=== PATIENT | female | born 1970 | race Caucasian/White ===

== ENCOUNTER 2018-08-22 17:31 | Outpatient (CLI) | payer BC ==
--- NOTE | 2018-08-24 00:45 | XRAY Report ---
Reason: UNSPECIFIED INJURY OF LEFT FOOT, INITIAL ENCOUNTER Procedure Date: 08/22/2018 Accession Number: [id number] / [id number] Procedure: XR - Foot 3 View LT CPT Code: FULL RESULT: EXAM: LEFT FOOT RADIOGRAPHY EXAM DATE: 08/22/2018 05:47 PM. CLINICAL HISTORY: Left foot pain. Stubbed toes 1 week ago. Bruising across second to fifth digits. COMPARISON: None. TECHNIQUE: 3 views. FINDINGS: Bones: Nondisplaced oblique shaft fracture of the third proximal phalanx. No other traumatic or destructive bone abnormalities. Bifid medial sesamoid noted. Joints: Normal. No subluxations. Soft Tissues: Unremarkable. IMPRESSION: Nondisplaced oblique shaft fracture of the third proximal phalanx. RADIA
== END 2018-08-22 17:32 | disposition home or self-care (01) ==
LOC: DI 17:31
PROVIDERS: ATTEND Nurse Practitioner Family
DX: S92.515A Nondisplaced fracture of proximal phalanx of left lesser toe(s), initial encounter for closed fracture (principal)

== ENCOUNTER 2018-09-15 13:19 | Outpatient (CLI) | payer BC ==
[2018-09-15 13:33] LABS: BILIRUBIN,URINE NEGATIVE (NEGATIVE); CLARITY,URINE CLEAR (CLEAR); GLUCOSE, URINE (UA) NEGATIVE (NEGATIVE); KETONES,URINE (UA) NEGATIVE (NEGATIVE); LEUKOCYTE ESTERASE, URINE MODERATE (NEGATIVE); NITRITE,URINE NEGATIVE (NEGATIVE); OCCULT BLOOD,URINE LARGE (NEGATIVE); PH,URINE 7.5 PH (5.0-7.5); PROTEIN,URINE NEGATIVE (NEGATIVE); UROBILINOGEN,URINE 0.2 (NORMAL) E.U./dL (NORMAL)
[2018-09-15 13:50] LABS: WBC CLUMPS,URINE PRESENT
[2018-09-15 13:51] LABS: BACTERIA,URINE Many /HPF (None Seen); SQUAMOUS EPITHELIAL CELL,UR RARE Squamous (<= Few)
== END 2018-09-15 13:20 | disposition home or self-care (01) ==
LOC: LAB 13:19
PROVIDERS: ATTEND Nurse Practitioner Family
DX: R30.9 Painful micturition, unspecified (principal)
CPT/HCPCS: 81001; 81003

== ENCOUNTER 2020-07-06 13:00 | Outpatient (CLI) | payer OTHER | END 2020-07-06 13:01 | disposition home or self-care (01) | LOC: COV 13:00 | PROVIDERS: ATTEND Nurse Practitioner Family | DX: Z20.828 Contact with and (suspected) exposure to other viral communicable diseases (principal) ==

== ENCOUNTER 2021-02-14 08:00 | Outpatient (CLI) | payer OTHER ==
[2021-02-14 20:42] LABS: BILIRUBIN,URINE NEGATIVE (NEGATIVE); GLUCOSE, URINE (UA) NEGATIVE (NEGATIVE); KETONES,URINE (UA) 15 mg/dL (NEGATIVE); LEUKOCYTE ESTERASE, URINE SMALL (NEGATIVE); NITRITE,URINE NEGATIVE (NEGATIVE); OCCULT BLOOD,URINE LARGE (NEGATIVE); PH,URINE 6.5 PH (5.0-7.5); PROTEIN,URINE TRACE mg/dL (NEGATIVE); UROBILINOGEN,URINE 0.2 (NORMAL) E.U./dL (NORMAL)
[2021-02-14 21:06] LABS: BACTERIA,URINE Few /HPF (None Seen); CLARITY,URINE SL. CLOUDY (CLEAR); CRYSTALS,URINE 3-5 Calcium Oxalate /LPF; SQUAMOUS EPITHELIAL CELL,UR FEW Squamous (<= Few)
== END 2021-02-14 23:59 | disposition home or self-care (01) ==
LOC: LAB.S 08:00
PROVIDERS: ATTEND Emergency Medicine
DX: R30.0 Dysuria (principal)
CPT/HCPCS: 81001; 87086

== ENCOUNTER 2021-02-17 13:19 | Outpatient (CLI) | payer OTHER ==
[2021-02-17 14:23] LABS: BILIRUBIN,URINE NEGATIVE (NEGATIVE); GLUCOSE, URINE (UA) NEGATIVE (NEGATIVE); KETONES,URINE (UA) NEGATIVE (NEGATIVE); LEUKOCYTE ESTERASE, URINE MODERATE (NEGATIVE); NITRITE,URINE POSITIVE (NEGATIVE); OCCULT BLOOD,URINE MODERATE (NEGATIVE); PROTEIN,URINE NEGATIVE (NEGATIVE); UROBILINOGEN,URINE 0.2 (NORMAL) E.U./dL (NORMAL)
[2021-02-17 14:27] LABS: CLARITY,URINE HAZY (CLEAR)
[2021-02-17 14:37] LABS: WBC,URINE >25 /HPF (0-5)
[2021-02-17 14:38] LABS: BACTERIA,URINE Few /HPF (None Seen); SQUAMOUS EPITHELIAL CELL,UR NONE SEEN (<= Few)
== END 2021-02-17 13:20 | disposition home or self-care (01) ==
LOC: LAB 13:19
PROVIDERS: ATTEND Emergency Medicine
DX: R30.0 Dysuria (principal)
CPT/HCPCS: 81001; 87077; 87086

== ENCOUNTER 2022-04-26 08:00 | Outpatient (CLI) | payer OTHER | END 2022-04-26 23:59 | disposition home or self-care (01) | LOC: LAB.N 08:00 | PROVIDERS: ATTEND Registered Nurse | DX: N12 Tubulo-interstitial nephritis, not specified as acute or chronic (principal); R30.0 Dysuria | CPT/HCPCS: 87077; 87086 ==

== ENCOUNTER 2022-11-23 08:00 | Outpatient (CLI) | payer OTHER ==
[2022-11-27 07:10] LABS: HSV-1 DNA Negative (Negative); HSV-2 DNA Positive (Negative)
== END 2022-11-23 23:59 | disposition home or self-care (01) ==
LOC: LAB 08:00
PROVIDERS: ATTEND Nurse Practitioner
DX: N90.89 Other specified noninflammatory disorders of vulva and perineum (principal)
CPT/HCPCS: 87529

== ENCOUNTER 2022-11-23 11:15 | Outpatient (CLI) | payer OTHER ==
[2022-11-24 15:08] LABS: HSV 1 IGG TYPE SPEC <0.91 index (0.00-0.90); HSV 2 IGG TYPE SPEC <0.91 index (0.00-0.90)
== END 2022-11-23 11:16 | disposition home or self-care (01) ==
LOC: LAB 11:15
PROVIDERS: ATTEND Nurse Practitioner
DX: N90.89 Other specified noninflammatory disorders of vulva and perineum (principal)
CPT/HCPCS: 36415; 86695; 86696

== ENCOUNTER 2023-04-02 08:00 | Outpatient (CLI) | payer OTHER ==
[2023-04-02 16:58] LABS: BILIRUBIN,URINE NEGATIVE (NEGATIVE); GLUCOSE, URINE (UA) NEGATIVE (NEGATIVE); KETONES,URINE (UA) NEGATIVE (NEGATIVE); LEUKOCYTE ESTERASE, URINE NEGATIVE (NEGATIVE); NITRITE,URINE NEGATIVE (NEGATIVE); OCCULT BLOOD,URINE SMALL (NEGATIVE); PH,URINE 5.5 PH (5.0-7.5); PROTEIN,URINE NEGATIVE (NEGATIVE); UROBILINOGEN,URINE 0.2 (NORMAL) E.U./dL (NORMAL)
[2023-04-02 17:14] LABS: AMORPHOUS SEDIMENT,UR Marked /LPF; BACTERIA,URINE Few /HPF (None Seen); CLARITY,URINE CLOUDY (CLEAR); SQUAMOUS EPITHELIAL CELL,UR FEW Squamous (<= Few); WBC,URINE 0-3 /HPF (0-5)
== END 2023-04-02 23:59 | disposition home or self-care (01) ==
LOC: LAB 08:00
PROVIDERS: ATTEND Nurse Practitioner
DX: R30.0 Dysuria (principal)
CPT/HCPCS: 81001; 87086

== ENCOUNTER 2024-08-26 11:18 | Observation (INO) ==
[~2024-08-26 11:18] MED LIST: BUPIVACAINE 0.25% PF 30 ML VIAL ONE; LIDOCAINE 1%-EPI 1:100000 20 ML MDV ONE; ceFAZolin 2 GM VIAL ONE; iohexoL-240 10 ML VIAL IVP ONE
[2024-08-26] MEDS ORDERED: fentaNYL 100 MCG/2 ML VIAL ONE ×2 (12:30→13:35)
[2024-08-26] MEDS ORDERED: ROCURONIUM 50 MG/5 ML VIAL ONE ×2 (12:30→14:40)
[2024-08-26] MEDS ORDERED: MIDAZOLAM 2 MG/2 ML VIAL ONE (12:30)
[2024-08-26] MEDS ORDERED: PROPOFOL 200 MG/20 ML VIAL IVP ONE (12:30)
[2024-08-26] MEDS ORDERED: LIDOCAINE-PF 2% 10 ML AMP SUBQ ONE (12:35)
[2024-08-26 12:40] LABS: ALBUMIN 4.4 g/dL (3.2-5.5); ALBUMIN/GLOBULIN RATIO 1.7 (1.0-2.2); BILIRUBIN,TOTAL 0.6 mg/dL (0.2-1.0); CALCIUM 9.6 mg/dL (8.5-10.3); CREATININE 0.9 mg/dL (0.6-1.3); POTASSIUM 4.3 mmol/L (3.5-4.5)
--- NOTE | 2024-08-26 13:02 | ANESTHESIA PROCEDURE NOTE ---
Pre-Anesthesia VS, & Labs Diagnosis Surgical Diagnosis:: cholelithiasis Procedure Procedure: Lap Dayna Vitals Vital Signs: Temp Pulse Resp BP Pulse Ox 36.1 C L 60 15 106/59 L 100 08/26/24 11:53 08/26/24 11:53 08/26/24 11:53 08/26/24 11:53 08/26/24 11:53 NPO NPO: >8 hours Is Patient ?: Not Applicable Lab Results Current Lab Results: Laboratory Tests 08/26/24 12:15: Sodium 138, Potassium 4.3, Chloride 105, Carbon Dioxide 27, Anion Gap 6.0, BUN 11, Creatinine 0.9, Estimated GFR (MDRD) 65 L, Glucose 93, Calcium 9.6, Total Bilirubin 0.6, AST 17, ALT 19, Alkaline Phosphatase 55, Total Protein 7.0, Albumin 4.4, Globulin 2.6, Albumin/Globulin Ratio 1.7 Lab results reviewed: Yes 08/26/24 12:15 Meds/Allgy Home Medications Ambulatory Orders Medication Instructions Recorded Confirmed estradiol 0.01% (0.1 mg/gram) 1 g vaginal .three times weekly 07/23/24 08/26/24 vaginal cream (Estrace) #42.5 grams ondansetron HCl 4 mg tablet 4 mg PO Q8H PRN nausea and 08/22/24 08/25/24 vomiting 7 days #21 tabs Allergies Allergies Allergy/AdvReac Type Severity Reaction Status Date / Time Latex, Natural Rubber Allergy Intermediate Rash Verified 08/26/24 11:51 seasonal Allergy Unknown Unknown Uncoded 08/25/24 13:02 PFSH Medical History Medical History Postmenopausal atrophic vaginitis Surgical History Surgical History Hx of tonsillectomy 1973 H/O knee surgery broken knee cap 1984 Family History Family History Mother Diabetes Father CAD (coronary artery disease) Aunt High blood pressure Depressed Uncle High blood pressure Alcoholism Social History Social History (Updated 08/26/24 @ 12:19 by Freya Lepe DO) Smoking Status: Never smoker Living arrangement: At home Marital Status: Living Condition: With spouse/s.o. Relationship: Level: Independent Substance Use: cannabis (any form) Anesthesia Exam (Expanded) Exam General: Alert, Oriented x3 and Cooperative Dental: WNL Mouth Openin Fingerbreadth Mallampati classification: II Thyromental Distance: 4-6 cm Plan Plan Anesthesia Type: General Consent for Procedure(s) Verified and Reviewed: Yes Code Status: Attempt Resuscitation ASA Classification ASA classification: 1-Healthy patient Is this case an emergency?: No
[2024-08-26] MEDS ORDERED: fentaNYL 100 MCG/2 ML VIAL IVP PRN (13:05)
[2024-08-26] MEDS ORDERED: NALOXONE 0.4 MG/ML VIAL IVP PRN (13:05)
[2024-08-26] MEDS ORDERED: ATROPINE ABBOJECT 1 MG/10 ML SYRINGE IVP PRN (13:05)
[2024-08-26] MEDS ORDERED: ONDANSETRON 4 MG/2 ML VIAL IVP PRN ×2 (13:05→17:20)
[2024-08-26] MEDS ORDERED: MORPHINE 2 MG/ML CARPUJECT IVP PRN (13:05)
[2024-08-26] MEDS ORDERED: HYDROmorphone 0.5 MG/0.5 ML SYRINGE IVP PRN ×2 (13:05→17:20)
[2024-08-26] MEDS: SCOPOLAMINE PATCH TOP SCH ×2 (13:06→19:07)
[2024-08-26] MEDS ORDERED: DEXAMETHASONE 4 MG/ML VIAL ONE (13:16)
[2024-08-26] MEDS ORDERED: PHENYLEPHRINE HCL 0.5 MG/5 ML AMPULE ONE (13:16)
[2024-08-26] MEDS ORDERED: ACETAMINOPHEN 1,000 MG/100 ML 1,000 MG/100 ML BAG IV ONE (13:50)
[2024-08-26] MEDS ORDERED: ePHEDrine 50 MG/ML VIAL IVP ONE (14:01)
[2024-08-26] MEDS ORDERED: SODIUM CHLORIDE 0.9% 10 ML VIAL IVP ONE (14:01)
[2024-08-26] MEDS ORDERED: GLUCAGON 1 MG/ML VIAL ONE (14:10)
[2024-08-26] MEDS ORDERED: iohexoL-240 10 ML VIAL IVP ONE ×2 (14:12→14:26)
[2024-08-26] MEDS ORDERED: SUGAMMADEX 200 MG/2 ML VIAL IVP ONE (14:13)
[2024-08-26] MEDS ORDERED: HYDROmorphone 1 MG/ML CARPUJECT ONE (16:09)
--- NOTE | 2024-08-26 16:43 | OPERATIVE REPORT ---
Operative Report General Procedure Data: Operation Date: 08/26/24 12:45 Proposed Procedures p Laparoscopic Cholecystectomy(Not Applicable) - Freya Lepe DO Actual Procedures p Laparoscopic Cholecystectomy INTEROPERATIVE CHOLANGIOGRAM; Attempted Laparoscopic common bile DUCT EXPLORATION(Not Applicable) - Freya Lepe DO Anesthesia Type General Case Staff Anesthesia Provider: Mushtaq Rainey Anesthesia Provider: Estefania Siegel Case Times Procedure Start: 08/26/24 13:29 Time out: 08/26/24 13:27 Pre-Op Diagnosis: intractable biliary colic Post Op Diagnosis: 1) intractable biliary colic 2) Choledocholithiasis Procedure Note Intake, IV Amount (ml): 1,700 Estimated Blood Loss (ml): 15 Pathology: gallbladder and contents Indications: 53F with 5 days of intractable RUQ pain since 08/21/24, mitigated by taking only clear liquids for those 5 days. Four days (08/22/24) ago had outpatient labs (normal WBC and LFTs) and RUQUS showing cholelithiasis and a stone lodged in the cystic duct but no evidence of cholecystitis (common bile duct diameter normal). Seen in general surgery clinic on 08/25/24 with persistent pain but no fever or WBC; she was set up for outpatient laparoscopic cholecystectomy the following day. Repeat LFTs on the day of surgery remained normal. Findings: Thin-walled gallbladder with mild inflammation. Stones within the gallbladder. Cystic ductotomy was made and attempted to milk from the cystic duct the stone reported on US. Because no cystic duct stone was able to be seen or milked from the cystic duct, decision was made to complete an intraoperative cholangiogram. IOC positive - single stone/meniscus seen at ampulla. Glucagon administered followed by "power flush" of CBD with normal saline, repeat cholangiogram showed stone had not passed. Attempted Laparoscopic CBDE, however due to anatomy of the cystic duct, spiraling around and posterior to the common duct, the spyglass choledochoscope was not able to be advanced over the guidewire into the distal CBD. Ultimately unsuccessful Lap CBDE, and procedure was concluded with plan for postoperative ERCP. Complications: none Other Other Information/Narrative: The patient was brought to the operating room under universal protocol. They were placed supine on the operating room table. General anesthesia was induced by the PUBLIC SPEAKING PROFESSOR. No [place] was placed. A final timeout was performed with all members of the team in agreement. The abdomen was prepped and draped in standard sterile fashion. The abdomen was entered via De Santiago technique at the infraumbilical position. Local anesthetic was injected and the skin was incised sharply. The subcutaneous tissues were dissected bluntly down to the level of the fascia, and a Demian clamp was used to elevate the umbilicus. The fascia was incised vertically sharply. The peritoneal cavity was entered bluntly with a Alisha forcep a blunt trocar was placed. The abdomen was insufflated to 15 mmHg with CO2 gas which the patient tolerated well. The laparoscope was introduced, no entry trauma was identified, and under direct visualization 3 additional 5 mm trocars were placed in the following positions: Subxiphoid, the subcostal margin along the right midclavicular line, and far lateral right upper quadrant at the subcostal margin. Patient was positioned with the head up in the right side elevated and graspers were introduced into the abdomen. The gallbladder was seen to be mildly inflamed with normal anatomy. The fundus was grasped and elevated cephalad over the liver edge. The infundibulum was grasped and retracted laterally. Hook electrocautery was used to incise the peritoneum over the medial and lateral edge of the gallbladder. Blunt dissection was used to clear the fat and connective tissue from the lower half of the gallbladder, exposing the cystic triangle. 2 structures were seen entering the lower third of the gallbladder with the liver edge seen between these 2 structures representing the critical view of safety. The cystic artery was triply clipped and divided sharply between the clips. The cystic duct was clipped proximally and partially divided allowing a ductotomy through which the cystic duct could be milked. The distal cystic was milked in an attempt to extract the stone which was seen on ultrasound to be lodged within the cystic duct. No such stone was identified or extracted. Thus, decision was made to perform an intraoperative cholangiogram. A ureteral catheter was introduced to the cystic duct and clamped using an Olvera clamp. A saline flush was seen to pass distally within the duct without spillage. The C- arm was brought in, and under fluoroscopic guidance, contrast was injected. A cholangiogram was obtained, showing the cystic duct emptying into the common duct, filling the proximal intrahepatic radicals, and flowing distally within the common bile duct. At the ampulla, there was a meniscus sign and minimal contrast passed into the duodenum, consistent with a cholangiogram positive for choledocholithiasis. Glugagon was administered intravenously, 5 minutes was allowed to elapse, and a "power flush" with 50cc of normal saline was injected via the cholagiogram catheter. Another cholangiogram was taken with contrast following the power flush, and the stone at the ampulla remained. Decision was made to proceed with laparoscopic common bile duct exploration using the Spflck.melass choledochoscope system. The olvera clamp and ureteral catheter were removed. An introducer sheath was passed through a separate stab incision in the right upper quadrant, and through the sheath a guidewire was passed into the cystic ductotomy and verified via fluoroscopy to have passed via the common duct into the duodenum. Over the guidewire, the cystic duct was balloon dilated to 6mm. The choledochoscope was then passed over the wire. After great effort, it was unable to be advanced passed the junction of the cystic duct and common bile duct. The sheath was then positioned through a different right upper quadrant stab incision in an effort to improve the angle to allow successful passage of the choledochoscope, and the same steps were repeated, ultimately with the same result of the choledochoscope getting stuck at the junction. At this point the choledochoscope was removed, the balloon dilator was readvanced and deployed under fluoro. It was at this point that it became clear that the anatomy of the cystic duct was such that it spiraled around the common duct before entering the common duct. The spiraled portion was dilated via two balloon positions, and a final attempt at passing the choledochoscope was made, however unsuccessful. The attempted laparoscopic common bile duct exploration was aborted at this point, and relevant equipment was withdrawn, noting that the patient would require postoperative ERCP for the choledocholith that was unable to be cleared via glucagon/flushing. The cystic duct was then fully transected at the level of the ductotomy. The cystic duct stump was ligated with one clip and an 0 PDS endoloop. The gallbladder was taken off of the liver bed using hook electrocautery. There was no bleeding on the hepatic fossa. The gallbladder was placed into an Endo Catch retrieval bag and removed through the umbilical port. The endoloop and clips were noted to be in place. The abdomen was irrigated and suctioned until irrigant returned clear. The trocars were removed. The patient was positioned flat. The fascia at the umbilical incision was closed with an 0 Vicryl [id number] suture and the umbilical wound was irrigated with clean normal saline. The remainder of the local anesthetic was injected at all incision sites. The skin at all incisions was closed with a subcuticular 4-0 Monocryl suture followed by dressing application. The patient was then awoken from general anesthesia having tolerated the procedure well. They were transferred to the PACU in good condition. All sponge and needle counts were correct. Arrangements for ERCP were initiated via the transfer line. Freya Lepe DO, FACS General Surgeon, [place]
--- NOTE | 2024-08-26 17:06 | ANESTHESIA POST OP EVALUATION ---
Anesthesia Post Eval Post Anesthesia Eval Vitals: Last Vital Signs Temp 36.7 C 08/26/24 16:45 Pulse 71 08/26/24 17:00 Resp 11 L 08/26/24 17:00 BP 122/62 08/26/24 17:00 Pulse Ox 96 08/26/24 17:00 CV Function Including HR & BP: Stable Pain Control: Satisfactory Nausea & Vomiting: Negative Mental Status: Baseline Respiratory Status: Airway Patent Hydration Status: Satisfactory Anesthesia Complications: None
[2024-08-26] MEDS ORDERED: oxyCODONE 5 MG TABLET PO PRN (17:20)
[2024-08-26] MEDS: ACETAMINOPHEN 1,000 MG/100 ML 1,000 MG/100 ML BAG IV SCH (17:54)
[2024-08-27] MEDS: LACTATED RINGERS 1,000 ML IV SCH (05:03)
--- NOTE | 2024-08-27 08:53 | XRAY Report ---
PROCEDURE: FL OR C-Arm Procedure INDICATIONS: POSSIBLE IOC FLUORO TIME: 1.10 TECHNIQUE: Fluoroscopic images submitted for review. COMPARISON: None. FINDINGS/IMPRESSION: Fluoroscopic images submitted for review. There are filling defects within the distal common bile paulina t. Reviewed by: Anam Virgen MD on 08/27/2024 8:52 AM PST Approved by: Anam Virgen MD on 08/27/2024 8:52 AM PST Station ID: [id number]
--- NOTE | 2024-08-27 13:09 | PROVIDER PROGRESS NOTE ---
Subjective General Procedure Date: 08/26/24 Post Op Days: 1 Procedure Performed: Laparoscopic cholecystectomy with intraoperative cholangiogram Other Other Information/Narrative: The intraoperative cholangiogram demonstrated choledocholithiasis that could not be cleared. Wound Assessment Wound/Incisions: positive Healing well and No drainage Review of Systems Patient had a little transient shoulder pain this AM that has been resolving. Avoiding opiates as she is snsitive and does not like the way they make her feel. A little scared to eat. Passing gas. Status of ROS: 10 or more systems reviewed and unremarkable except as noted in history and below Constitutional Denies: Fever, Chills, Weakness or Diaphoresis Cardiovascular Denies: chest pain, palpitations or shortness of breath with exertion Respiratory Denies: Shortness of breath Gastrointestinal Denies: Nausea, Vomiting, Bile emesis or Yomi blood emesis Musculoskeletal Denies: Back pain Neurological Denies: Headache, General weakness, Focal weakness or Weakness in extremities Psychiatric Denies: Depression or Anxiety Exam Constitutional normal general appearance, no apparent distress, average body habitus and no limitations HENMT normocephalic, head/scalp atraumatic, hearing grossly normal bilaterally and external ears normal Eyes conjunctivae normal and no scleral icterus Neck/C-Spine visual inspection normal and trachea midline Respiratory breath sounds equal bilaterally, normal respiratory effort, clear to auscultation bilaterally, no wheezes, no rales, no retractions and no use of accessory muscles Cardiovascular normal heart rate noted, regular rhythm noted, no gallop, no rub and no murmur Gastrointestinal abdomen soft to palpation, nondistended and normoactive bowel sounds Some slight incisional tenderness. Inferior aspect of ribs a bit tender. Extremities normal to inspection and no tenderness Neurology no movement abnormality noted, no focal motor deficit noted and no sensory deficits noted Psychiatry mental status grossly normal, oriented x3, thought process normal, cooperative, affect normal, psychomotor activity normal and memory normal Skin skin color normal, no rash and no jaundice ABX Reporting Has patient been on IV antibiotics over the past 48 hours?: Yes Impression/Plan Problem List (1) Choledocholithiasis: Plan: D1 s/p laparosocpic cholecystectomy with IOC demonstrating choledocholithiasis. In my discussions with Dr. Lepe, she has arranged ERCP at [place] in order to clear the duct. There is absolutely no indication of ongoing or budding infection. The proper way to address this would be to have an ERCP as soon as possible but certainly within 7 days. Await ERCP. Plan D1 s/p laparosocpic cholecystectomy with IOC demonstrating choledocholithiasis. In my discussions with Dr. Lepe, she has arranged ERCP at [facility] in order to clear the duct. There is absolutely no indication of ongoing or budding infection. The proper way to address this would be to have an ERCP as soon as possible but certainly within 7 days. Await ERCP.
--- NOTE | 2024-08-27 15:19 | PHARMACY PROGRESS NOTE ---
Best Possible Medication History Admit Date and Time: Home Medications Medication Instructions Recorded Confirmed Type estradiol 0.01% (0.1 mg/gram) 1 g vaginal S[place]UTH 08/27/24 08/27/24 History vaginal cream (Estrace) Processed by: Pharmacy Medications reviewed in ED?: No Medication History completed: Yes Patient Interview: Completed (by clinical pharmacy specialistEulalio) Secondary Source(s): Previous admit records [facility] Statement: As the person ultimately responsible for medication therapy, providers are able to order a medication from an existing home medication list in [facility] via the "Reconcile Routine" prior to Confirmation of that medication by instructional support services director. Such practice is discouraged except when the physician, in their clinical judgment, deems that a medical need exists for a medication without regard to previous use.
[2024-08-27] MEDS: ceFAZolin (2G) 2 GM in SODIUM CHLORIDE 0.9% MINIBAG 100 ML IV ONE (17:39)
--- NOTE | 2024-08-28 10:24 | PROVIDER PROGRESS NOTE ---
Progress Note Progress Note Progress Note: General Surgery Progress Note S: Barbie is comfortable and awaiting her transportation to [facility] for her ERCP later today. The plan is to have her return to our facility after the procedure. O: VSS, afeb. AAO. No abdominal complaints. Labs: None today A: Choledocholithiasis, s/p laparoscopic cholecystectomy, IOC. P: For ERCP later today; NPO pre-procedure Sixto Long MD, FACS General Surgery Service
[2024-08-28 12:54] VITALS: O2SAT 97
[2024-08-28 18:43] VITALS: BP 126/57; TEMP 97.7
--- NOTE | 2024-08-28 19:26 | PROVIDER PROGRESS NOTE ---
Progress Note Progress Note Progress Note: General Surgery Progress Note S: Barbie returns from her ERCP at [facility] and would like to be discharged. She is ambulatory, having no discomfort, and tolerating liquids. O: VSS afeb; ERCP removed several stones and sludge. A: Progressing well from her laparoscopic cholecystectomy and post-procedure ERCP. P: Discharge to home; Advance diet as tolerated; Tylenol for discomfort; FU Dr. Lepe in 10-14 days or sooner as needed. Sixto Long MD, FACS General Surgery Service
== END 2024-08-28 20:20 | disposition home or self-care (01) ==
LOC: SDS 11:18 → MS2 11:18
PROVIDERS: ADMIT Surgery; ATTEND Surgery
DX: K80.64 Calculus of gallbladder and bile duct with chronic cholecystitis without obstruction